=== PATIENT | female | born 1950 | race Two or more races ===

== ENCOUNTER 2022-04-19 09:04 | Emergency (ER) | payer MEDICARE, OTHER ==
[2022-04-19 09:18] VITALS: BP 180/57; PULSE 68
== END 2022-04-19 12:07 | disposition home or self-care (01) ==
LOC: JP.ED 09:04
DX: K21.9 Gastro-esophageal reflux disease without esophagitis (principal); R07.89 Other chest pain; E11.9 Type 2 diabetes mellitus without complications; I10 Essential (primary) hypertension; E78.5 Hyperlipidemia, unspecified; Z79.899 Other long term (current) drug therapy
CPT/HCPCS: 36415; 80048; 84484; 85025; 93005; 99285-25

== ENCOUNTER 2022-11-26 23:08 | Emergency (ER) | payer MEDICARE, OTHER ==
[2022-11-26] MEDS ORDERED: Meclizine 25 MG Tab PO ONE (23:46)
[2022-11-27] MEDS ORDERED: Metoclopramide 10 MG/2 ML SDV IVPUSH ONE (00:07)
[2022-11-27 00:56] VITALS: BP 141/85; PULSE 82
== END 2022-11-27 01:59 | disposition home or self-care (01) ==
LOC: JP.ED 23:08
DX: H81.12 Benign paroxysmal vertigo, left ear (principal); I10 Essential (primary) hypertension; E78.00 Pure hypercholesterolemia, unspecified; Z79.899 Other long term (current) drug therapy; Z88.6 Allergy status to analgesic agent
CPT/HCPCS: 70450; 93005; 96374; 99284; A9270; J2765; 93010; 99283